=== PATIENT | male | born 1985 | race Caucasian/White ===

== ENCOUNTER 2022-12-05 16:30 | Outpatient (CLI) | payer BC, SELFPAY | END 2022-12-05 16:31 | disposition home or self-care (01) | LOC: LKVREF 16:30 | PROVIDERS: PCP Emergency Medicine; Visit Provider Nurse Practitioner Family | DX: R19.7 Diarrhea, unspecified (principal) | CPT/HCPCS: 87045; 87046; 87077; 87427 ==

== ENCOUNTER 2023-12-23 08:17 | Outpatient (CLI) | payer BC, SELFPAY | END 2023-12-23 08:18 | disposition home or self-care (01) | LOC: NFLDREF 12-26 20:17 | PROVIDERS: PCP Emergency Medicine; Referring Provider Emergency Medicine; Visit Provider Emergency Medicine | DX: Z00.00 Encounter for general adult medical examination without abnormal findings (principal); J84.10 Pulmonary fibrosis, unspecified; R03.0 Elevated blood-pressure reading, without diagnosis of hypertension; R74.01 Elevation of levels of liver transaminase levels; Z12.5 Encounter for screening for malignant neoplasm of prostate; Z13.6 Encounter for screening for cardiovascular disorders | CPT/HCPCS: 80053; 80061; G0103 ==

== ENCOUNTER 2023-12-29 10:45 | Outpatient (CLI) | payer BC, SELFPAY ==
--- NOTE | 2023-12-29 10:45 | CRLHL7_ITS ---
For Patients: As a result of the Century Cures Act, medical imaging exams and procedure reports are released immediately into your electronic medical record. You may view this report before your referring provider. If you have questions, please contact your health care provider. INDICATION: Elevated LFTs COMPARISON: none TECHNIQUE: Real time karimi scale imaging and color Doppler analysis was performed of the right upper quadrant. FINDINGS: The liver echotexture is diffusely increased. No intrahepatic mass. There is a normal appearance of the hepatic IVC and proximal abdominal aorta. There is no evidence of ascites. The gallbladder is of normal size and there is no evidence of intraluminal stones or sludge. The gallbladder wall measures 2.1 mm in thickness. The common bile duct is of normal size and measures 6.4 mm in diameter at the level of the morenita hepatis. The pancreas appears normal. There is no evidence of a stone or hydronephrosis within the right kidney. The right kidney measures 12.0 cm in length. IMPRESSION: Moderately severe diffuse hepatic steatosis. No gallstones. Dictated by Juarez Kamara MD @ 12/29/2023 12:17:28 PM (Electronically Signed)
== END 2023-12-29 10:46 | disposition home or self-care (01) ==
LOC: US 10:46
PROVIDERS: PCP Emergency Medicine; Visit Provider Emergency Medicine
DX: R74.01 Elevation of levels of liver transaminase levels (principal); K76.0 Fatty (change of) liver, not elsewhere classified
CPT/HCPCS: 76705